=== PATIENT | female | born 1970 | race African-American/Black ===

== ENCOUNTER → 2017-10-15 | Outpatient (CLI) | payer BC ==
[2017-10-15 13:22] LABS: Basophils % (A) 0 %; Eosinophils # (A) 0.3 k/uL (0-0.7); Eosinophils % (A) 5 %; HCT 41.7 % (34.0-46.0); HGB 13.4 gm/dL (11.4-16.0); Lymphocytes % (A) 29 %; MCH 28.8 pg (25.0-35.0); MCHC 32.2 g/dL (31.0-37.0); MCV 89.5 fL (80.0-100.0); Mean Platelet Volume 7.3; Monocytes # (A) 0.5 k/uL (0-1.0); Monocytes % (A) 8 %; Neutrophils % (A) 57 %; Platelet Count 279 k/uL (150-450); RBC 4.66 m/uL (3.80-5.40); RDW 13.5 % (11.5-15.5)
== END | disposition home or self-care (01) ==
LOC: LABWHC1 12:11
PROVIDERS: ATTEND Obstetrics & Gynecology
DX: Z01.812 Encounter for preprocedural laboratory examination (principal)
CPT/HCPCS: 36415; 85025

== ENCOUNTER 2017-10-19 06:41 | Day surgery (SDC) | payer BC ==
[2017-10-12 11:44] VITALS: BMI 35.4
--- NOTE | 2017-10-18 14:14 | P.HPOB ---
History of Present Illness H&P Date: 10/18/17 Chief Complaint: Menorrhagia 47 year old presents for D&C hysteroscopy and endometrial ablation with NovaSure. Review of Systems All systems: negative Constitutional: Denies chills, Denies fever Eyes: denies blurred vision, denies pain Ears, nose, mouth and throat: Denies headache, Denies sore throat Cardiovascular: Denies chest pain, Denies shortness of breath Respiratory: Denies cough Gastrointestinal: Denies abdominal pain, Denies diarrhea, Denies nausea, Denies vomiting Genitourinary: Denies dysuria, Denies hematuria Musculoskeletal: Denies myalgias Integumentary: Denies pruritus, Denies rash Neurological: Denies numbness, Denies weakness Psychiatric: Denies anxiety, Denies depression Endocrine: Denies fatigue, Denies weight change Past Medical History Past Medical History: Asthma History of Any Multi-Drug Resistant Organisms: None Reported Past Surgical History: Tubal Ligation Past Anesthesia/Blood Transfusion Reactions: No Reported Reaction Past Psychological History: No Psychological Hx Reported Smoking Status: Current every day smoker Past Alcohol Use History: Occasional Additional Past Alcohol Use History / Comment(s): Has been smoking 8 cigarettes per day for 20 yrs. Past Drug Use History: None Reported - Past Family History Mother Family Medical History: Cancer Additional Family Medical History / Comment(s): Skin cancer Medications and Allergies Home Medications Medication Instructions Recorded Confirmed Type Albuterol Sulfate [Proair Hfa] 2 puff INHALATION DAILY 10/12/17 10/12/17 History Ibuprofen 200 mg PO Q6H PRN 10/12/17 10/12/17 History Allergies Allergy/AdvReac Type Severity Reaction Status Date / Time No Known Allergies Allergy Verified 10/12/17 11:33 Exam Osteopathic Statement: *. No significant issues noted on an osteopathic structural exam other than those noted in the History and Physical/Consult. HEart: RRR Lungs: CTAB Abdomen: soft, nontender Extremeties: neg patria's Assessment and Plan (1) Menorrhagia Status: Acute Code(s): N92.0 - EXCESSIVE AND FREQUENT MENSTRUATION WITH REGULAR CYCLE SNOMED Code(s): 683615089 Plan: 1. D&C hysteroscopy and endometrial ablation with NovaSure
[~2017-10-19 06:41] MED LIST: DEXAMETHASONE SOD PHOSPHATE 10 MG/ML 1 ML VIAL IV ONE; HYDROmorphone 0.5 MG/0.5 ML SYRINGE IVP PRN; LACTATED RINGERS 1,000 ML IV SCH; LIDOCAINE 1% 20 ML VIAL (10MG/ML) FOR IV START INTRADERMA PRN; MIDAZOLAM 2 MG/2 ML VIAL IV PRN; ONDANSETRON ODT 4 MG TAB PO ONE; Pre Op ABX Message 1 EACH MISC MISCELLANE ONE; SCOPOLAMINE 1.5MG/72HR PATCH TRANSDERM ONE
[2017-10-19] MEDS ORDERED: ONDANSETRON 4 MG/2 ML VIAL IVP ONE (07:35)
[2017-10-19] MEDS ORDERED: GLYCOPYRROLATE 0.2 MG/ML 2 ML VIAL ONE (08:00)
[2017-10-19] MEDS ORDERED: KETOROLAC 30 MG/ML 1 ML VIAL ONE (08:00)
[2017-10-19] MEDS ORDERED: fentaNYL (PF) 50 MCG/ML 2 ML AMP ONE (08:00)
[2017-10-19] MEDS ORDERED: LIDOCAINE 1% INJ 10MG/ML (20 ML MDV) ONE (08:00)
[2017-10-19] MEDS ORDERED: PROPOFOL 10 MG/ML 20 ML VIAL IV ONE (08:00)
[2017-10-19] MEDS ORDERED: MIDAZOLAM 2 MG/2 ML VIAL ONE (08:00)
[2017-10-19] MEDS ORDERED: LACTATED RINGERS 1,000 ML IV ONE (08:30)
--- NOTE | 2017-10-19 08:33 | P.OP ---
Date of Procedure: 10/19/17 Preoperative Diagnosis: 1. Menorrhagia Postoperative Diagnosis: 1. Menorrhagia Procedure(s) Performed: D&C, hysteroscopy, endometrial ablation with NovaSure Anesthesia: MAC Surgeon: Chata Pryor Estimated Blood Loss (ml): 5 IV fluids (ml): 550 Urine output (ml): 5 Pathology: other (endometrial curettings) Condition: stable Disposition: PACU Operative Findings: Cavity length 5 cm, width 4.7 cm, power 129 W, time of ablation 92 seconds. Adequate ablation after NovaSure. Description of Procedure: Patient is taken the operating room where general anesthesia was obtained without difficulty. She was prepped and draped in normal sterile fashion dorsal lithotomy position, legs placed in the [employer] cane stirrups. Bladder was drained of all urine. Weighted speculum placed in the vagina and the anterior lip the cervix was grasped with serial tooth tenaculum. The uterus sounded to 7.5 cm and the cervix under 2.5 cm making the cavity length 5 cm. The cervix was dilated to #8 Hegar dilator. Hysteroscopy was then performed. There was a large amount of proliferative endometrium seen, and was difficult to visualize the ostia. Sharp curet was then gently used to obtain endometrial curettings. The NovaSure was introduced into the uterus with a cavity length of 5 cm, width 4.7 cm. after cavity assessment was passed, the time of ablation was 92 seconds at 129 W. Hysteroscopy was again performed and adequate ablation was noted. All instruments removed from the vagina. Patient tolerated the procedure well, sponge and instrument counts were correct 2 and she was taken to recovery in stable condition.
[2017-10-19 08:47] VITALS: TEMP 96.8
[2017-10-19] MEDS: MORPHINE SULFATE 2 MG/ML SYRINGE IV PRN ×2 (08:56→09:13)
[2017-10-19 10:23] VITALS: BP 155/60; PULSE 72; RESP 16
== END 2017-10-19 10:35 | disposition home or self-care (01) ==
LOC: OR 06:41
PROVIDERS: ATTEND Obstetrics & Gynecology
DX: N92.0 Excessive and frequent menstruation with regular cycle (principal); J45.909 Unspecified asthma, uncomplicated; F17.210 Nicotine dependence, cigarettes, uncomplicated; Z79.899 Other long term (current) drug therapy
CPT/HCPCS: 81025; 88305; 84703; 58563; J2250; J1100; J2405; J2001; J3010; J1885; J2270; J2704

== ENCOUNTER → 2019-04-25 | Outpatient (CLI) | payer OTHER ==
--- NOTE | 2019-04-25 14:48 | MM ---
Reason for exam: screening (asymptomatic). Baseline mammogram. History: Family history of breast cancer in maternal grandmother at age 50. Took hormonal contraceptives beginning at age 17. Physical Findings: Nurse did not find any significant physical abnormalities on exam. MG Screening Mammo w CAD Bilateral CC and MLO view(s) were taken. The breast tissue is heterogeneously dense. This may lower the sensitivity of mammography. Finding: There is a 5-6 mm circumscribed oval mass located 8-9 cm from the nipple in the upper outer quadrant, posterior position of the right breast. These results were verbally communicated with the patient and result sheet given to the patient on 04/25/19. ASSESSMENT: Incomplete: need additional imaging evaluation, BI-RAD 0 RECOMMENDATION: Ultrasound of the right breast.
--- NOTE | 2019-04-25 14:51 | USB ---
Reason for exam: additional evaluation requested from abnormal screening. History: Family history of breast cancer in maternal grandmother at age 50. Took hormonal contraceptives beginning at age 17. Physical Findings: Breast exam preformed at baseline screening. US Breast Workup Limited RT Right limited breast ultrasound including focal area of concern, retroareolar and axilla demonstrates duct ectasia at 9 o'clock and a 0.5 x 0.5 x 0.3cm oval, irregular, complex, cystic lesion at 10 o'clock. These results were verbally communicated with the patient and result sheet given to the patient on 04/25/19. ASSESSMENT: Probably benign, BI-RAD 3 RECOMMENDATION: Follow-up diagnostic mammogram and ultrasound of the right breast in 6 months.
== END | disposition home or self-care (01) ==
LOC: RADMAMWWP 12:59
PROVIDERS: ATTEND Family Medicine
DX: Z12.31 Encounter for screening mammogram for malignant neoplasm of breast (principal); R92.8 Other abnormal and inconclusive findings on diagnostic imaging of breast; Z80.3 Family history of malignant neoplasm of breast
CPT/HCPCS: 77067

== ENCOUNTER → 2022-02-19 | Outpatient (CLI) | payer BC ==
--- NOTE | 2022-02-19 12:11 | MM ---
Reason for Exam: Screening (asymptomatic). Last mammogram was performed 2 year(s) and 10 month(s) ago. Patient History: Menarche at age 12. First Full-Term at age 31. Late child-bearing (after 31). Postmenopausal. Hormonal Contraceptives, from age 17 until age 21. Maternal grandmother had breast cancer, age 50. Risk Values: Sada 5 year model risk: 1.5%. NCI Lifetime model risk: 13.3%. Prior Study Comparison: 04/25/2019 Bilateral Screening Mammogram, [facility]. Tissue Density: The breast tissue is heterogeneously dense. This may lower the sensitivity of mammography. Findings: Analyzed By CAD. Benign-appearing bilateral axillary lymph nodes redemonstrated. There is no suspicious group of microcalcifications or new suspicious mass in either breast. Overall Assessment: Negative, BI-RAD 1 Management: Screening Mammogram of both breasts in 1 year. A clinical breast exam by your physician is recommended on an annual basis and results should be correlated with mammographic findings. Electronically signed and approved by: Josef Nazario M.D.
== END | disposition home or self-care (01) ==
LOC: RADMAMWWP 09:20
PROVIDERS: ATTEND Family Medicine
DX: Z12.31 Encounter for screening mammogram for malignant neoplasm of breast (principal); Z78.0 Asymptomatic menopausal state; Z80.3 Family history of malignant neoplasm of breast
CPT/HCPCS: 77067

== ENCOUNTER 2022-04-23 08:15 | Day surgery (SDC) | payer BC, OTHER ==
[2022-04-21 10:23] VITALS: BMI 38.9
[2022-04-23 09:01] VITALS: RESP 16; TEMP 97
[2022-04-23] MEDS: LACTATED RINGERS 1,000 ML IV SCH ×2 (09:03→09:48)
[2022-04-23] MEDS ORDERED: LIDOCAINE 1% (10MG/ML) FOR IV START INTRADERMA ONE (09:03)
[2022-04-23] MEDS ORDERED: PROPOFOL 10 MG/ML 20 ML VIAL IV ONE (09:47)
[2022-04-23] MEDS ORDERED: GLYCOPYRROLATE 0.2 MG/ML 2 ML VIAL ONE (09:47)
[2022-04-23] MEDS ORDERED: LIDOCAINE 2% INJ 20 MG/ML (2 ML VIAL) ONE (09:47)
--- NOTE | 2022-04-23 09:49 | P.GSHP ---
History of Present Illness H&P Date: 04/23/22 Chief Complaint: Screening colonoscopy This a 52-year-old female who presents today for screening colonoscopy. Patient denies any significant GI complaints. Past Medical History Past Medical History: Asthma, Hypertension Additional Past Medical History / Comment(s): 10/19/17 sl cold and cough for few days no fever History of Any Multi-Drug Resistant Organisms: None Reported Past Surgical History: Tubal Ligation Past Anesthesia/Blood Transfusion Reactions: No Reported Reaction Past Psychological History: No Psychological Hx Reported Smoking Status: Current every day smoker Past Alcohol Use History: Occasional Additional Past Alcohol Use History / Comment(s): Has been smoking 8 cigarettes per day for 24 yrs. Past Drug Use History: None Reported - Past Family History Mother Family Medical History: Cancer Additional Family Medical History / Comment(s): Skin cancer. Medications and Allergies Home Medications Medication Instructions Recorded Confirmed Type Albuterol Sulfate [Proair Hfa] 2 puff INHALATION DAILY PRN 10/12/17 04/21/22 History Atorvastatin [Lipitor] 40 mg PO DAILY 04/21/22 04/21/22 History Benazepril HCl 40 mg PO QAM 04/21/22 04/21/22 History Liraglutide [Saxenda] 3 mg SQ DAILY 04/21/22 04/21/22 History amLODIPine 10 mg PO QAM 04/21/22 04/21/22 History Allergies Allergy/AdvReac Type Severity Reaction Status Date / Time No Known Allergies Allergy Verified 04/23/22 08:48 Surgical - Exam Vital Signs Temp Pulse Resp BP Pulse Ox 97.0 F L 85 16 130/87 98 04/23/22 08:57 04/23/22 08:57 04/23/22 08:57 04/23/22 08:57 04/23/22 08:57 - General well developed, well nourished, no distress - Eyes PERRL - ENT normal pinna - Neck no masses - Respiratory normal expansion - Cardiovascular Rhythm: regular - Abdomen Abdomen: soft, non tender Assessment and Plan Assessment: We'll perform screening colonoscopy
--- NOTE | 2022-04-23 10:09 | P.OP ---
Date of Procedure: 04/23/22 Preoperative Diagnosis: Screening colonoscopy Postoperative Diagnosis: Rectal polyp Procedure(s) Performed: Colonoscopy Anesthesia: MAC Surgeon: Gurvinder Boggs Pathology: other (Rectal polyp) Condition: stable Disposition: PACU Description of Procedure: The patient's placed on the endoscopy table in the lateral position. She received IV sedation. Digital rectal exam was performed. This revealed no ebonized. The flexible colonoscope was then placed patient anus and passed throughout the entire colon. The ileocecal valve was visualized. The cecum, ascending and transverse colon appeared normal. The descending and sigmoid colon appeared normal. In the rectum there was a small sessile polyp. This removed the cold forcep. Scope withdrawn for patient.
[2022-04-23 10:25] VITALS: BP 134/92
[2022-04-23 10:38] VITALS: PULSE 91
== END 2022-04-23 10:43 ==
LOC: ORWHC2ENDO 08:15
PROVIDERS: ATTEND Surgery
DX: Z12.11 Encounter for screening for malignant neoplasm of colon (principal); K62.1 Rectal polyp; J45.909 Unspecified asthma, uncomplicated; I10 Essential (primary) hypertension; F10.90 Alcohol use, unspecified, uncomplicated; F17.210 Nicotine dependence, cigarettes, uncomplicated; Z80.8 Family history of malignant neoplasm of other organs or systems; Z79.51 Long term (current) use of inhaled steroids; Z79.899 Other long term (current) drug therapy
CPT/HCPCS: 81025; 88305; 45380; J2704; J2001